=== PATIENT | male | born 1935 | race Caucasian/White ===

== ENCOUNTER 2017-06-02 10:09 | Day surgery (SDC) | payer OTHER ==
[2017-06-02] MEDS ORDERED: LIDOCAINE 1% 2 ML INJ ONE (10:41)
[2017-06-02] MEDS ORDERED: LR 1,000 ML IV ONE (10:55)
[2017-06-02] MEDS ORDERED: LIDOCAINE 1% 2 ML INJ ID PRN (10:55)
[2017-06-02] MEDS ORDERED: LIDOCAINE 2% 5 ML SDV ONE (11:44)
[2017-06-02] MEDS ORDERED: PROPOFOL/EMULSION 500 MG/50 ML BOTTLE IV ONE (11:44)
--- NOTE | 2017-06-02 11:45 | PDGENHP ---
History & Physical Chief Complaint: phx polyps History of Present Illness: phx polyps, last colon 5 years ago Pertinent Past, Social, Family History: social alcohol, no tobacco, no cc Relevant Physical Exam: cta, s1s2, +bs, soft nt Cardiorespiratory Assessment: s1s2, cta. class 3 pt
--- NOTE | 2017-06-02 11:48 | PDANEPAE ---
ANE Past Medical History - Cardiovascular History Hx Hypertension: Yes Hx Arrhythmias: Yes Hx Chest Pain: No Hx Coronary Artery / Peripheral Vascular Disease: Yes Hx CHF / Valvular Disease: No Hx Palpitations: No - Pulmonary History Hx COPD: Yes Hx Asthma/Reactive Airway Disease: Yes Hx Recent Upper Respiratory Infection: No Hx Oxygen in Use at Home: Yes O2 in Use at Home (L/minute): 2L Hx Sleep Apnea: No Sleep Apnea Screening Result - Last Documented: Positive Pulmonary History Comment: HYPOXEMIA GOES TO [facility] YEARLY. PREV PNEUMONIA - Neurologic History Hx Cerebrovascular Accident: No Hx Seizures: No Hx Dementia: No - Endocrine History Hx Diabetes: No - Renal History Hx Renal Disorders: No - Liver History Hx Hepatic Disorders: No - Neurological & Psychiatric Hx Hx Neurological and Psychiatric Disorders: No - Cancer History Hx Cancer: Yes Cancer History Comment: SKIN - Congenital Disorder History Hx Congenital Disorders: No - GI History Hx Gastrointestinal Disorders: No Gastrointestinal History Comment: PREV COLONOSCOPY WITH POLYP REMVL - Other Health History Other Health History: BILATERAL HEARING LOSS - Chronic Pain History Chronic Pain: No - Surgical History Prior Surgeries: GLENNY CATARACT. HEMORRHOIDECTOMY. TONSILLECTOMY ANE Review of Systems - Exercise capacity METS (RN): 4 METS ANE Patient History - Allergies Allergies/Adverse Reactions: No Known Allergies Allergy (Unverified 05/16/17 16:03) - Home Medications Home Medications: Advair 250/50 (*) BID 05/16/17 [Last Taken 06/02/17 07:30] Aspirin DAILY06 05/16/17 [Last Taken 05/27/17] Herbal Drugs 05/16/17 [Last Taken 1 Week Ago] Hydrochlorothiazide DAILY06 05/16/17 [Last Taken 06/01/17 07:00] Lisinopril DAILY06 05/16/17 [Last Taken 06/02/17 07:00] Ocuvite DAILY 05/16/17 [Last Taken 1 Week Ago] Spiriva Inhaler (RX) DAILY06 05/16/17 [Last Taken 06/02/17 07:00] Ventolin Hfa Inhaler PRN 05/16/17 [Last Taken 3 Weeks Ago] - NPO status NPO Since - Liquids (Date): 06/02/17 NPO Since - Liquids (Time): 07:00 NPO Since - Solids (Date): 06/01/17 NPO Since - Solids (Time): 09:00 - Smoking Hx Smoking Status: Former smoker ANE Labs/Vital Signs - Vital Signs Blood Pressure: 138/80 Heart Rate: 60 Respiratory Rate: 16 O2 Sat (%): 93 Height: 177.8 cm Weight: 105.233 kg ANE Physical Exam - Airway Neck exam: decreased ROM Mallampati Score: Class 2 Mouth exam: poor dentition - Pulmonary Pulmonary: no respiratory distress, no rales or rhonchi, clear to auscultation, reduced air movement - Cardiovascular Cardiovascular: regular rate and rhythym, no murmur, rub, or gallop, pulses symmetric bilaterally - ASA Status ASA Status: III ANE Anesthesia Plan Anesthesia Plan: MAC
[2017-06-02] MEDS ORDERED: ONDANSETRON 4 MG/2 ML VIAL IVP PRN (12:12)
[2017-06-02] MEDS ORDERED: NALOXONE HCL 0.4 MG/ML INJ IVP PRN (12:12)
[2017-06-02] MEDS ORDERED: LR 500 ML IV PRN (12:12)
[2017-06-02] MEDS ORDERED: fentaNYL 100 MCG/2 ML INJ IVP PRN (12:12)
--- NOTE | 2017-06-02 12:40 | POSTANESTH ---
Post Anesthetic Evaluation Cardiovascular Status: Normal, Stable Respiratory Status: Normal, Stable, Similar to Pre-op Cond. Level of Consciousness/Mental Status: Mildly Sleepy, Arousable Pain Control: Adequate, Prn Tx Ordered Nausea/Vomiting Control: Adequate, Prn Tx Ordered Complications Possibly Related to Anesthesia: None Noted
--- NOTE | 2017-06-02 12:43 | POSTOPPROG ---
Post Op Note Date of Operation: 06/02/17 Surgeon: Tay Douglas Anesthesiologist: Geronimo Anesthesia: Other (Specify) (MAC) Pre-op Diagnosis: phx polyps Post-op Diagnosis: 10 polyps removed Indication: phx polyps, possible hx UC Procedure: colon with snare, bx Findings: small TC polyps, moderate sice DC and Sigmoid polyps, small rectosig Inf/Abcess present in the surg proc area at time of surgery?: No EBL: Minimal (few ml) Total fluids administered: 200cc Complications: none immediate
[2017-06-02 13:07] VITALS: PULSE 53
[2017-06-02 13:25] VITALS: RESP 15; TEMP 97.6
--- NOTE | 2017-06-02 13:32 | GPN ---
[f rep st] PROCEDURE NOTE PROCEDURE PERFORMED: Colonoscopy, biopsy, and polypectomy. INDICATIONS: Personal history of polyps. Last colonoscopy 5 years ago with multiple hyperplastic polyps and 1 adenoma. In addition, possible history of left-sided ulcerative colitis many years ago, on no medications for years, without any recurrence. INFORMED CONSENT: I had a detailed discussion with the patient regarding the procedure, alternatives, benefits, and risks including bleeding, perforation, infection, risk of medication. Informed consent was signed and witnessed. COMPLICATIONS: None immediate. MEDICATIONS USED: MAC as per Dr. Bruce. Given the patient's oxygen requirement at home, the procedures was scheduled in the hospital with anesthesia for the safe completion of said procedure. COMPLICATIONS: None immediate. DESCRIPTION OF PROCEDURE: Patient was placed in left lateral decubitus position. A visual and digital anorectal examination was performed. The video colonoscope was inserted in the rectum and advanced under visualization into the terminal ilium. I identified the cecum by the ileocecal valve, confluence of the taeniae, and the appendiceal orifice. Retroflexed examination was performed in the cecum. The endoscope was un-retroflexed. The careful withdrawal was performed with close attention paid to mucosal detail. The prep was good in most places, fair in some. Multiple washings were obtained to get an adequate view of the mucosa. The patient did have 2 small polyps in transverse colon, measuring approximately 2 to 4 mm in size. These were removed in total by cold biopsy in piecemeal fashion. The patient had 2 polyps in the proximal descending colon measuring approximately 6 and 9 mm in size. These were removed in total by cold snare. The patient had 2 polyps in the descending colon, measuring approximately 5 and 7 mm in size. These were also removed in total by cold snare. The patient had 4 small polyps measuring 1 to 3 mm in size in the rectosigmoid colon, removed in total by cold biopsy, some in piecemeal fashion. Some in toto. Retroflex examination was performed in the rectum. The endoscope was un-retroflexed and advanced back into the transverse colon. Air was removed. The endoscope was completely removed, confirming the above findings. The patient tolerated the procedure well and was transferred to the recovery room in satisfactory condition. IMPRESSION: 1. Two small transverse colon polyps removed in total by cold biopsy. 2. Two moderate-sized polyps removed in the descending colon removed by cold snare 3. Two moderate-sized polyps removed in the proximal descending colon by cold snare. 4. Four small polyps in the rectosigmoid colon removed by cold biopsy. RECOMMENDATIONS: 1. Follow up pathology of all biopsies. 2. Repeat colonoscopy depending on pathology of the tissue. 3. High-fiber, high fluid diet. 4. Patient may take aspirin for cardiac and stroke prevention, but I would to avoid any other nonsteroidal anti-inflammatory drugs or aspirin for the next 7- 10 days. 5. Follow up with primary care physician as scheduled. Thank you for allowing me to participate in patient's healthcare. Do not hesitate to call me with any questions. /[id number]/MODL MTDD
[2017-06-02 14:00] VITALS: BP 139/67; O2SAT 90
== END 2017-06-02 14:02 | disposition home or self-care (01) ==
LOC: FSGY 10:09
PROVIDERS: ATTEND Internal Medicine Gastroenterology
PROC: 0DBM8ZX Excision of Descending Colon, Via Natural or Artificial Opening Endoscopic, Diagnostic (ICD-10-PCS; principal; 2017-06-02 11:45)
PROC: 0DBL8ZX Excision of Transverse Colon, Via Natural or Artificial Opening Endoscopic, Diagnostic (ICD-10-PCS; principal; 2017-06-02 11:45)
PROC: 0DBN8ZX Excision of Sigmoid Colon, Via Natural or Artificial Opening Endoscopic, Diagnostic (ICD-10-PCS; principal; 2017-06-02 11:45)
DX: D12.3 Benign neoplasm of transverse colon (principal); D12.4 Benign neoplasm of descending colon; D12.5 Benign neoplasm of sigmoid colon; I10 Essential (primary) hypertension; I73.9 Peripheral vascular disease, unspecified
CPT/HCPCS: J2704

== ENCOUNTER 2018-03-31 11:14 | Emergency (ER) | payer OTHER ==
--- NOTE | 2018-03-31 11:49 | EDPHY ---
H & P Time Seen by Provider: 03/31/18 11:20 HPI/ROS: CHIEF COMPLAINT: Left inner thigh pain History by patient HISTORY OF PRESENT ILLNESS: 82-year-old man with a history of COPD who uses inhalers but not oral steroids and hypertension presents complaining of left inner thigh/groin pain after he says he felt a pull while lifting a heavy rock working at his [employer] job. This episode happened 5 days ago. He only had minor pain at the time but subsequently the next day he noticed as light was bothering him, particularly every time he changes position such as rolling out of bed or getting up and he will notice that he limps her step or two. Other than changing position, there is no specific movement that seems to bother it. He has been taking ibuprofen with some relief. Patient has a history of some posterior leg and hip pain which he says in the past was due to his back so he has been trying to ice his back for this anterior thigh pain. He denies any back pain. He denies any difficulty with bowel or bladder control. He is otherwise feeling well. He has been continuing to work and exercise daily. He denies any fever. He finished a course of antibiotics for tooth infection for which she was taking penicillin and a few weeks ago. REVIEW OF SYSTEMS: As in HPI, and all other systems reviewed and are negative Smoking Status: Former smoker Physical Exam: General Appearance: Alert and no distress. Well-appearing Head: Normocephalic, atraumatic Eyes: Pupils equal and round no injection. Extraocular movements are intact. Musculoskeletal: Neck is supple and nontender. Back: No bony tenderness, no paraspinal muscle tenderness, no CVA tenderness, no buttock tenderness Extremities: Left hip full range of motion without pain actively and passively , left knee full range of motion actively and passively, no pain with AB duction against resistance, straight leg raise is negative bilaterally, no pain with internal or external rotation, no left anterior trochanter tenderness,. Skin: Positive red, moist well circumscribed, nontender, no calor, area in left groin crease with satellite lesions. exam: Normal external genitalia, no hernia, no testicular tenderness, no skin changes of the scrotum or perineum Neuro: Awake alert oriented x3, motor strength 5/5 and equal bilaterally in the lower extremities, normal gait, normal sensation Constitutional: Initial Vital Signs Temperature (C) 36.4 C 03/31/18 11:19 Heart Rate 66 03/31/18 11:19 Respiratory Rate 20 03/31/18 11:19 O2 Sat (%) 91 L 03/31/18 11:19 Allergies/Adverse Reactions: No Known Allergies Allergy (Verified 03/31/18 11:25) Home Medications: Medication Instructions Recorded Advair 250/50 (*) BID 05/16/17 Aspirin DAILY06 05/16/17 Herbal Drugs 05/16/17 Hydrochlorothiazide DAILY06 05/16/17 Lisinopril DAILY06 05/16/17 Ocuvite DAILY 05/16/17 Spiriva Inhaler (RX) DAILY06 05/16/17 Ventolin Hfa Inhaler PRN 05/16/17 Terbinafine HCl [Terbinafine] 30 gm TP BID #1 cream..g. 03/31/18 MDM/Departure - [facility] ED Course/Re-evaluation: 82-year-old man presents with left inner thigh pain with movement after possible strain at work. Exam here is unremarkable. He has not been on steroids or quinolone antibiotic to put him at risk for tendinopathy. There is no evidence of joint involvement or fracture. Patient has had improvement with ibuprofen. Patient is also noted to have skin lesion consistent with tinea corpus. There is no systemic toxicity, tenderness, fever or other suggestions of Rusty's gangrene. Because of the occasion of the rash we did discuss return precautions in detail. We will treat his skin lesion with terbinafine cream. Otherwise I recommend the patient follow up with primary care physician if his muscle pain persists any continue to take ibuprofen, ice as needed and I recommended decreasing ibuprofen and adding acetaminophen. Patient understands and is agreeable to this plan. - Depart Disposition: Home, Routine, Self-Care Clinical Impression: Tinea corporis Strain of left inguinal muscle Qualifiers: Encounter type: initial encounter Qualified Code(s): S39.013A - Strain of muscle, fascia and tendon of pelvis, initial encounter Clinical Impression: (Ruled Out): Tinea cruris Condition: Good Instructions: Groin Strain (ED), Skin Yeast Infection (ED) Additional Instructions: You were seen by Dr. Victoria Maxwell today. You may continue to take ibuprofen 200-400 mg 2 to 3 times a day for pain, though I recommend you try to cut back on the ibuprofen at this point.. Try also taking acetaminophen 1000 mg every 4 hr while awake. You may try icing your left thigh muscle directly. Apply terbinafine cream to your left groin skin crease for the skin infection. If this continues to get worse despite the cream, if you get a fever, if you have increased pain in the area, the pain or redness seems to be spreading, please return immediately to emergency department for re-evaluation as this may indicate a serious skin infection. Please follow up with your primary care physician. Dr. Eric, for your strained leg muscle. Return for any worsening or new concerns. Prescriptions: Terbinafine HCl [Terbinafine] 30 gm TP BID #1 cream..g. Referrals: NONE *PRIMARY CARE P,. [Primary Care Provider] - As per Instructions
== END 2018-03-31 12:00 | disposition home or self-care (01) ==
LOC: CED 11:14
DX: S39.013A Strain of muscle, fascia and tendon of pelvis, initial encounter (principal); B35.4 Tinea corporis; Z79.82 Long term (current) use of aspirin; Z87.891 Personal history of nicotine dependence; X58.XXXA Exposure to other specified factors, initial encounter